=== PATIENT | female | born 2000 | race American Indian/Alaskan Native ===

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

== ENCOUNTER 2020-06-19 22:28 | Emergency (ER) | payer MEDICAID, OTHER ==
--- NOTE | 2020-06-19 22:55 | Event Note ---
ED Screening Note Date of service: 06/19/20 Time: 22:54 ED Screening Note: 19 y/o female with ISAMAR and chest pain. This initial assessment/diagnostic orders/clinical plan/treatment(s) is/are subject to change based on patients health status, clinical progression and re- assessment by fellow clinical providers in the ED. Further treatment and workup at subsequent clinical providers discretion. Patient/guardian urged not to elope from the ED as their condition may be serious if not clinically assessed and managed. Initial orders include:
[2020-06-19 22:59] VITALS: BP 127/80
--- NOTE | 2020-06-19 23:45 | XRay Report ---
CHEST 2 VIEWS INDICATION / CLINICAL INFORMATION: chest pain. COMPARISON: 10/17/2017 FINDINGS: SUPPORT DEVICES: None. HEART / MEDIASTINUM: No significant abnormality. LUNGS / PLEURA: No significant pulmonary or pleural abnormality. No pneumothorax. ADDITIONAL FINDINGS: No significant additional findings. IMPRESSION: 1. No acute findings. Signer Name: Felix Hawkins MD Signed: 06/19/2020 11:41 PM Workstation Name: [id number]
--- NOTE | 2020-06-20 00:19 | Emergency Department Report ---
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 pt rates symptoms at 3/10. - Related Data Previous Rx's Medication Instructions Recorded Last Taken Type raNITIdine HCl [Zantac 150 MG TAB] 150 mg PO BID #30 tablet 10/17/17 Unknown Rx Ibuprofen [Motrin 800 MG tab] 800 mg PO Q8HR PRN #30 tablet 06/20/20 Unknown Rx Allergies Allergy/AdvReac Type Severity Reaction Status Date / Time No Known Allergies Allergy Unverified 10/17/17 17:15 ED Review of Systems ROS: Stated complaint: CHEST PAIN,DIFFICULTY BREATHING Other details as noted in HPI Constitutional: denies: chills, fever Eyes: denies: eye pain, eye discharge, vision change ENT: denies: ear pain, throat pain Respiratory: other (pain with deep inspiration ). denies: cough, wheezing Cardiovascular: chest pain (right lateral anterior chest wall pain ). denies: palpitations Endocrine: no symptoms reported Gastrointestinal: denies: abdominal pain, nausea, diarrhea Genitourinary: denies: urgency, dysuria, discharge Musculoskeletal: denies: back pain, joint swelling, arthralgia Skin: denies: rash, lesions ED Past Medical Hx - Past Medical History Previous Medical History?: Yes Hx GERD: Yes - Surgical History Past Surgical History?: No - Social History Smoking Status: Never Smoker Substance Use Type: None - Medications Home Medications: Home Medications Medication Instructions Recorded Confirmed Last Taken Type raNITIdine HCl [Zantac 150 MG TAB] 150 mg PO BID #30 tablet 10/17/17 Unknown Rx Ibuprofen [Motrin 800 MG tab] 800 mg PO Q8HR PRN #30 tablet 06/20/20 Unknown Rx ED Physical Exam - General Limitations: No Limitations General appearance: alert, in no apparent distress - Head Head exam: Present: atraumatic, normocephalic - Eye Eye exam: Present: normal appearance, PERRL, EOMI Pupils: Present: normal accommodation - ENT ENT exam: Present: mucous membranes moist - Neck Neck exam: Present: normal inspection, tenderness, full ROM - Respiratory Respiratory exam: Present: normal lung sounds bilaterally, chest wall tenderness, decreased breath sounds. Absent: respiratory distress, wheezes, rales, rhonchi, stridor, accessory muscle use - Cardiovascular Cardiovascular Exam: Present: regular rate, normal rhythm, normal heart sounds. Absent: systolic murmur, diastolic murmur, rubs, gallop - GI/Abdominal GI/Abdominal exam: Present: soft, normal bowel sounds. Absent: distended, tenderness, guarding, rebound, rigid, bruit - Rectal Rectal exam: Present: deferred - Extremities Exam Extremities exam: Present: normal inspection. Absent: full ROM, tenderness, calf tenderness - Back Exam Back exam: Present: normal inspection, full ROM. Absent: tenderness, CVA tenderness (R), CVA tenderness (L) - Neurological Exam Neurological exam: Present: alert, oriented X3 - Psychiatric Psychiatric exam: Present: normal affect, normal mood - Skin Skin exam: Present: warm, dry, intact, normal color. 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 COMPARISON: 10/17/2017 FINDINGS: SUPPORT DEVICES: None. HEART / MEDIASTINUM: No significant abnormality. LUNGS / PLEURA: No significant pulmonary or pleural abnormality. No pneumothorax. ADDITIONAL FINDINGS: No significant additional findings. IMPRESSION: 1. No acute findings. Signer Name: Felix Hawkins MD Signed: 06/19/2020 10:41 PM Workstation Name: [id number] - Medical Decision Making Chest x-ray is normal no opacities no infiltrates. Symptoms improved with medications given in ED. Plan DC to home prescription for ibuprofen as needed, moist heat therapy , follow-up primary care doctor in 2 to 3 days Critical care attestation.: If time is entered above; I have spent that time in minutes in the direct care of this critically ill patient, excluding procedure time. ED Disposition Clinical Impression: Chest wall pain Disposition: DC- TO HOME OR SELFCARE Is pt being admited?: No Does the pt Need Aspirin: No Condition: Stable Instructions: Chest Pain (ED), Chest Wall Pain, [id number], Nonspecific Chest Pain, Adult Prescriptions: Ibuprofen [Motrin 800 MG tab] 800 mg PO Q8HR PRN #30 tablet PRN Reason: pain Referrals: PRIMARY CARE,MD [Primary Care Provider] - 3-5 Days Forms: Work/School Release Form(ED) Time of Disposition: 00:49
[2020-06-20] MEDS ORDERED: IBUPROFEN 800 MG TAB PO ONE (00:20)
[2020-06-20] MEDS ORDERED: FAMOTIDINE 20 MG TAB PO ONE (00:20)
== END 2020-06-20 01:00 | disposition home or self-care (01) ==
LOC: ED 22:28
DX: R07.89 Other chest pain (principal); R06.00 Dyspnea, unspecified; K21.9 Gastro-esophageal reflux disease without esophagitis; Z79.1 Long term (current) use of non-steroidal anti-inflammatories (NSAID); Z79.899 Other long term (current) drug therapy
CPT/HCPCS: 71046; 93005

== ENCOUNTER 2020-11-18 17:08 | Emergency (ER) | payer SELFPAY ==
--- NOTE | 2020-11-18 19:15 | Emergency Department Report ---
ED General Adult HPI - General Chief complaint: Vaginal Bleeding Stated complaint: CYCLE [id number] HEAVY BLEEDING Time Seen by Provider: 11/18/20 19:07 Source: patient Mode of arrival: Ambulatory Limitations: No Limitations - History of Present Illness Initial comments: PT is a 19 y/o female who presents for vaginal bleeding x 17 days. Pt states moderate bleeding , no fever no chills, no n/v. pt is tolerating po intake without n/v. - Related Data Previous Rx's Medication Instructions Recorded Last Taken Type raNITIdine HCl [Zantac 150 MG TAB] 150 mg PO BID #30 tablet 10/17/17 Unknown Rx Ibuprofen [Motrin 800 MG tab] 800 mg PO Q8HR PRN #30 tablet 06/20/20 Unknown Rx Allergies Allergy/AdvReac Type Severity Reaction Status Date / Time No Known Allergies Allergy Verified 11/18/20 18:29 ED Review of Systems ROS: Stated complaint: CYCLE [id number] HEAVY BLEEDING Other details as noted in HPI Constitutional: denies: chills, fever Eyes: denies: eye pain, eye discharge, vision change ENT: denies: ear pain, throat pain Respiratory: denies: cough, shortness of breath, wheezing Cardiovascular: denies: chest pain, palpitations Endocrine: no symptoms reported Gastrointestinal: abdominal pain (bilat lower abd ). denies: nausea, vomiting Genitourinary: denies: urgency, dysuria, discharge Musculoskeletal: denies: back pain, joint swelling, arthralgia Skin: denies: rash, lesions Neurological: denies: headache, weakness, paresthesias Psychiatric: denies: anxiety, depression Hematological/Lymphatic: denies: easy bleeding, easy bruising ED Past Medical Hx - Past Medical History Hx GERD: Yes - Surgical History Past Surgical History?: No - Social History Smoking Status: Never Smoker Substance Use Type: None - Medications Home Medications: Home Medications Medication Instructions Recorded Confirmed Last Taken Type raNITIdine HCl [Zantac 150 MG TAB] 150 mg PO BID #30 tablet 10/17/17 Unknown Rx Ibuprofen [Motrin 800 MG tab] 800 mg PO Q8HR PRN #30 tablet 06/20/20 Unknown Rx ED Physical Exam - General Limitations: No Limitations General appearance: alert, in no apparent distress - Head Head exam: Present: atraumatic, normocephalic - Eye Eye exam: Present: normal appearance, EOMI Pupils: Present: normal accommodation - ENT ENT exam: Present: mucous membranes moist - Neck Neck exam: Present: normal inspection - Respiratory Respiratory exam: Present: normal lung sounds bilaterally. Absent: respiratory distress - Cardiovascular Cardiovascular Exam: Present: regular rate, normal rhythm, normal heart sounds. Absent: systolic murmur, diastolic murmur, rubs, gallop - GI/Abdominal GI/Abdominal exam: Present: soft, normal bowel sounds. Absent: distended, tenderness, guarding, rebound, rigid, bruit, hernia - Rectal Rectal exam: Present: deferred - Extremities Exam Extremities exam: Present: normal inspection, full ROM, normal capillary refill - Back Exam Back exam: Present: normal inspection, full ROM. Absent: tenderness, CVA tenderness (R), CVA tenderness (L) - Neurological Exam Neurological exam: Present: alert, oriented X3, CN II-XII intact, normal gait - Psychiatric Psychiatric exam: Present: normal affect, normal mood - Skin Skin exam: Present: warm, dry, intact, normal color. Absent: rash ED Course Vital Signs 11/18/20 18:29 Temperature 98.3 F Pulse Rate 79 Respiratory 18 Rate Blood Pressure 128/86 O2 Sat by Pulse 99 Oximetry ED Medical Decision Making - Lab Data Result diagrams: 11/18/20 19:27 Labs 11/18/20 19:27 WBC 5.1 RBC 5.08 H Hgb 12.5 Hct 39.0 MCV 77 L MCH 25 L MCHC 32 RDW 14.4 Plt Count 246 Lymph % (Auto) 33.5 Ness % (Auto) 6.3 Eos % (Auto) 0.7 Baso % (Auto) 0.2 Lymph # (Auto) 1.7 Ness # (Auto) 0.3 Eos # (Auto) 0.0 Baso # (Auto) 0.0 Seg Neutrophils % 59.3 Seg Neutrophils # 3.0 - Medical Decision Making Patient DNA x4. Patient confirmed has eloped. Disposition undetermined. no answer to phone number listed as contact in demographic data for this patient. [phone] Critical care attestation.: If time is entered above; I have spent that time in minutes in the direct care of this critically ill patient, excluding procedure time. ED Disposition Clinical Impression: Abnormal uterine bleeding (AUB) Disposition: ELOPED Is pt being admited?: No Does the pt Need Aspirin: No Condition: Stable Instructions: Abnormal Uterine Bleeding Additional Instructions: follow up with [employer] SENIOR PROJECT MANAGER in 2-3 days Referrals: GIOVANA CORRALES JR, MD [Staff Physician] - 3-5 Days Time of Disposition: 00:07
[2020-11-18 19:41] LABS: Basophils % (Auto) 0.2 % (0.0-1.8); Eosinophils % (Auto) 0.7 % (0.0-4.3); Hemoglobin 12.5 gm/dl (10.1-14.3); Lymphocytes # (Auto) 1.7 K/mm3 (1.2-5.4); Lymphocytes % (Auto) 33.5 % (13.4-35.0); Mean Corpuscular HGB Conc 32 % (30-34); Mean Corpuscular Volume 77 fl (79-97); Monocytes # (Auto) 0.3 K/mm3 (0.0-0.8); Monocytes % (Auto) 6.3 % (0.0-7.3); Platelet Count 246 K/mm3 (140-440); Red Blood Count 5.08 M/mm3 (3.65-5.03); Red Cell Distribution Width 14.4 % (13.2-15.2)
[2020-11-19 01:33] LABS: Bilirubin,Urine NEG (Negative); Blood,Urine LG (Negative); Color,Urine Yellow (Yellow); Mucus,Urine 1+ /HPF; Protein,Urine <15 mg/dL mg/dL (Negative); Urobilinogen,Urine < 2.0 mg/dL (<2.0)
[2020-11-19 01:47] LABS: HCG Qualitative,Urine Negative (Negative)
--- NOTE | 2020-11-19 02:30 | Emergency Department Report ---
ED Female HPI - General Chief complaint: Vaginal Bleeding Stated complaint: CYCLE [id number] HEAVY BLEEDING Time Seen by Provider: 11/18/20 19:07 Source: patient Mode of arrival: Ambulatory Limitations: No Limitations - History of Present Illness Initial comments: Patient is a nulliparous 19-year-old -[place] female with no past medical history presents to the ED with persistent heavy vaginal bleeding for the last 2 weeks especially in the last 2 days. Patient states that she has used multiple pads with no relief. Patient states that she is currently on another control medication that she has taken for the last 3 months. Patient states that she has not seen [facility] physician in the last 2 weeks since the onset of the symptoms. Patient denies dizziness, syncope, fever, chills, generalized weakness, abdominal pain, nausea and vomiting, dysuria, urinary frequency and urgency or vaginal discharge and low back pain. MD Complaint: vaginal bleeding -: Sudden, week(s) (2) Location: other (vaginal) Radiation: non-radiating Severity: severe Severity scale (0 -10): 7 Quality: dull Consistency: constant Improves with: none Worsens with: none Are you Now?: No Associated Symptoms: denies other symptoms, vaginal bleeding. denies: vaginal discharge, abdominal pain, nausea/vomiting, fever/chills, headaches, loss of appetite, dysuria, hematuria, rash, shortness of breath, syncope, weakness - Related Data Sexually active: Yes : 0 Para: 0 A: 0 Previous Rx's Medication Instructions Recorded Last Taken Type raNITIdine HCl [Zantac 150 MG TAB] 150 mg PO BID #30 tablet 10/17/17 Unknown Rx Ibuprofen [Motrin 800 MG tab] 800 mg PO Q8HR PRN #30 tablet 06/20/20 Unknown Rx medroxyPROGESTERone ACETATE 10 mg PO DAILY #14 tablet 11/19/20 Unknown Rx [Provera] Allergies Allergy/AdvReac Type Severity Reaction Status Date / Time No Known Allergies Allergy Verified 11/18/20 18:29 ED Review of Systems ROS: Stated complaint: CYCLE [id number] HEAVY BLEEDING Other details as noted in HPI Constitutional: denies: chills, fever Eyes: denies: eye pain, eye discharge, vision change ENT: denies: ear pain, throat pain Respiratory: denies: cough, shortness of breath, wheezing Cardiovascular: denies: chest pain, palpitations Endocrine: no symptoms reported Gastrointestinal: abdominal pain (bilat lower abd ). denies: nausea, vomiting Genitourinary: denies: urgency, dysuria, discharge Musculoskeletal: denies: back pain, joint swelling, arthralgia Skin: denies: rash, lesions Neurological: denies: headache, weakness, paresthesias Psychiatric: denies: anxiety, depression Hematological/Lymphatic: denies: easy bleeding, easy bruising ED Past Medical Hx - Past Medical History Hx GERD: Yes - Surgical History Past Surgical History?: No - Social History Smoking Status: Never Smoker Substance Use Type: None - Medications Home Medications: Home Medications Medication Instructions Recorded Confirmed Last Taken Type raNITIdine HCl [Zantac 150 MG TAB] 150 mg PO BID #30 tablet 10/17/17 Unknown Rx Ibuprofen [Motrin 800 MG tab] 800 mg PO Q8HR PRN #30 tablet 06/20/20 Unknown Rx medroxyPROGESTERone ACETATE 10 mg PO DAILY #14 tablet 11/19/20 Unknown Rx [Provera] ED Physical Exam - General Limitations: No Limitations General appearance: alert, in no apparent distress - Head Head exam: Present: atraumatic, normocephalic, normal inspection - Eye Eye exam: Present: normal appearance, PERRL, EOMI Pupils: Present: normal accommodation - ENT ENT exam: Present: normal exam, normal orophraynx, mucous membranes moist, TM's normal bilaterally, normal external ear exam - Neck Neck exam: Present: normal inspection, full ROM - Respiratory Respiratory exam: Present: normal lung sounds bilaterally. Absent: respiratory distress, wheezes, rales, rhonchi, chest wall tenderness, accessory muscle use, prolonged expiratory - Cardiovascular Cardiovascular Exam: Present: regular rate, normal rhythm, normal heart sounds. Absent: systolic murmur, diastolic murmur, rubs, gallop - GI/Abdominal GI/Abdominal exam: Present: soft, normal bowel sounds. Absent: tenderness, guarding, rebound, hyperactive bowel sounds, organomegaly - Extremities Exam Extremities exam: Present: normal inspection, full ROM, normal capillary refill - Back Exam Back exam: Present: normal inspection, full ROM. Absent: tenderness, CVA tenderness (R), CVA tenderness (L), muscle spasm, paraspinal tenderness, vertebral tenderness - Neurological Exam Neurological exam: Present: alert, oriented X3, CN II-XII intact, normal gait, reflexes normal - Psychiatric Psychiatric exam: Present: normal affect, normal mood - Skin Skin exam: Present: warm, dry, intact, normal color. Absent: rash ED Course Vital Signs 11/18/20 11/19/20 18:29 02:29 Temperature 98.3 F Pulse Rate 79 78 Respiratory 18 16 Rate Blood Pressure 128/86 Blood Pressure 128/68 [Right] O2 Sat by Pulse 99 99 Oximetry ED Medical Decision Making - Lab Data Result diagrams: 11/18/20 19:27 - Medical Decision Making This is a nulliparous 19-year-old -[place] female with no past medical history presents to the ED with persistent heavy vaginal bleeding for the last 2 weeks especially in the last 2 days. Patient states that she has used multiple pads with no relief. Patient states that she is currently on another control medication that she has taken for the last 3 months. Patient states that she has not seen [employer] physician in the last 2 weeks since the onset of the symptoms. In the ED, patient is alert and oriented x3 and is not in any distress. Patient is hemodynamically stable. Initial lab test results were nonactionable except for significant gross blood in urine. Patient was therefore discharged home on medications advised to follow-up with [employer] physician in 3 to 5 days for reevaluation or return to the ED immediately if symptoms get worse. - Differential Diagnosis menometrorrhagia; ; UTI; Ovarian cyst; anemia Critical care attestation.: If time is entered above; I have spent that time in minutes in the direct care of this critically ill patient, excluding procedure time. ED Disposition Clinical Impression: Abnormal uterine bleeding (AUB), Menometrorrhagia Disposition: - TO HOME OR SELFCARE Is pt being admited?: No Does the pt Need Aspirin: No Condition: Stable Instructions: Abnormal Uterine Bleeding, Metrorrhagia, [id number], Menorrhagia, [id number], Dysfunctional Uterine Bleeding Additional Instructions: follow up with [facility] in 2-3 days Prescriptions: medroxyPROGESTERone ACETATE [Provera] 10 mg PO DAILY #14 tablet Referrals: GIOVANA CORRAELS JR, MD [Staff Physician] - 3-5 Days Forms: Work/School Release Form(ED) Time of Disposition: 02:29 Print Language: BRUNEIAN
[2020-11-19 02:55] VITALS: BP 128/68
== END 2020-11-19 02:55 | disposition home or self-care (01) ==
LOC: ED 17:08
DX: N92.1 Excessive and frequent menstruation with irregular cycle (principal); K21.9 Gastro-esophageal reflux disease without esophagitis; Z79.899 Other long term (current) drug therapy
CPT/HCPCS: 36415; 81001; 81025; 85025; 99283